=== PATIENT | male | born 1990 | race Caucasian/White ===

== ENCOUNTER 2019-08-14 15:43 | Emergency (ER) | payer SELFPAY ==
[~2019-08-14] VITALS: Ht 180.3 cm; Wt 97.5 kg
[2019-08-14 15:56] VITALS: BP 134/82
== END 2019-08-14 17:34 | disposition home or self-care (01) ==
LOC: ER 15:43
DX: S92.352A Displaced fracture of fifth metatarsal bone, left foot, initial encounter for closed fracture (principal); W18.39XA Other fall on same level, initial encounter; Y93.67 Activity, basketball; Y92.39 Other specified sports and athletic area as the place of occurrence of the external cause; Y99.8 Other external cause status
CPT/HCPCS: 29515; 73610; 73630